=== PATIENT | male | born 1950 | race Caucasian/White ===

== ENCOUNTER → 2017-10-31 | Day surgery (SDC) | payer OTHER ==
[~2017-10-31] VITALS: Ht 177.8 cm; Wt 105.0 kg
[2017-10-31] VITALS (10 sets, daily range): BP systolic 101–148; BP diastolic 39–78; PULSE 49–59; TEMP 36.9; O2SAT 90–99; Ht 177.8 cm; Wt 105.0 kg
[~2017-10-31] MED LIST: AMLO-114 PO; ASCA500 PO; ASPI1TAB2 PO; ATOR-26 PO; CANNULA ONE; CO-Q10 PO; COLC0.6T54 PO; CYAN100048; CYAN10005 PO; CYCL10TA6 PO; LISI-792 PO; LRT5 PO; MISCCAP52 PO; MULT-506 PO; NAPR-1169 PO; OMEG10007 PO; OSTEO BIOFLEX PO; PANT40TA PO; SAW1000C PO; TAMS0.4C38 PO; TRAM-10 PO; VENL75CA73 PO; [UNRECOGNIZED DRUG - OTHER] PO
--- NOTE | 2017-10-31 07:32 | History & Physical Bridge Note ---
H&P Re-Evaluation Bridge Note: I have examined the patient, reviewed the History & Physical and in the interval since the performance of the History & Physical I have noted the following changes of clinical significance: No changes noted
--- NOTE | 2017-10-31 08:23 | Cardiology Procedure Brief Nt ---
Preliminary Cardiology Note Procedure Date Oct 31, 2017. Pre-Procedure Diagnosis Prosthetic aortic valve stenosis Post-Procedure Diagnosis Normal bioprosthetic aortic valve leaflet excursion Procedure(s) Performed Transesophageal echocardiogram Ring Attacher Cderic Christopher DO Internal Controls Consultant(s) MARY Zhang Estimated Blood Loss none Preliminary Findings After informed consent was obtained and timeout was performed with the patient was sedated with the assistance of Dr. Navarro of anesthesia receiving a total of 300 mg of IV propofol in divided doses. The bioprosthetic aortic valve was visualized by transesophageal echocardiogram , 2D images with normal leaflet excursion and no significant stenosis. No significant prosthetic regurgitation was noted. Sufficient Doppler velocities could not be obtained due to technical limitations from the transgastric imaging position. Recommendations Continue current medications. Follow-up as an outpatient as planned. Specimens None Anesthesia Propofol 300 mg. Complication(s) None Disposition Recover in the post cardiac catheterization recovery area, then discharge home
--- NOTE | 2017-10-31 08:33 | Discharge Instructions ---
Discharge Instructions Procedure Procedure Date: Oct 31, 2017. Reason for Visit: Assess for bioprosthetic aortic valve stenosis . Transesophageal echocardiogram performed today, 10/31/17, excluded prosthetic valve stenosis. Discharge Discharge Date: Oct 31, 2017. Discharge Diagnosis: Normal prosthetic valve function. Last Recorded Wt (Kilograms): 105 Anesthesia Post Anesthesia Instructions: If you have had General Anesthesia or IV Sedation: * Do not drive today. * Resume driving when surgeon permits. * Do not make important decisions or sign legal documents today. * Call surgeon for: 1. Temperature elevations greater than 101 degrees F. 2. Uncontrollable pain. 3. Excessive bleeding. 4. Persistent nausea and vomiting. 5. Medication intolerance (nausea, vomiting or rash). * For nausea and vomiting use only clear liquids such as: tea, soda, bouillon until nausea subsides, then gradually increase diet as tolerated. * If you have any concerns or questions, call your surgeon's office. If physician is unavailable and it is an emergency, call 911 or go to the nearest emergency room. Instructions Activity Recommendations: limitations as noted below, resume regular activity Recommended Home Diet: resume previous diet Allergies: Coded Allergies: Doxazosin (Unverified Allergy, Unknown, unknown, 10/31/17) Methylprednisolone (Unverified Allergy, Unknown, unknown, 10/31/17) Omeprazole (Verified Allergy, Unknown, 09/25/09) Provider Instructions ACTIVITY RECOMMENDATIONS: Resume activities as tolerated with no limitations unless specified. _x_ No lifting over __10 pounds for 24 hours. _x_ Do not engage in vigorous exercise, sexual activity, or sports for 24 hours. _x_ Do not drive or operate any motorized equipment for 24 hours. _x_ You may return to work/school tomorrow. _x_ Nothing to eat or drink until gag reflex returns. _x_ No HOT or WARM liquids for __ hours. _x_ Avoid "scratchy" foods such as potato chips or pretzels for 24 hours following procedure. SPECIAL CARE: If you experience coughing up or vomiting of blood, contact Follow Up Follow-up with: Follow up with Dr Candi De Anda Recommendations: Call your doctor if: * Temperature above 101 degrees * Pain not relieved by pain medicine ordered * There is increased drainage or redness from any incision * You have any unanswered questions or concerns. Your Doctors Instructions noted above were prepared by provider Cedric Christopher. Patient Signature Section: Patient Instructions Signature Page Jeff Woodruff Patient (or Guardian) Signature/Date: I have read and understand the instructions given to me by my caregivers. Caregiver/RN/Doctor Signature/Date: The above-named patient and/or guardian has received patient instructions on this date. + Original Patient Signature Page (only) stays with chart. Please make copy for patient.
--- NOTE | 2017-10-31 08:58 | Anesthesiology Progress Note ---
Anesthesia Post Op Note Date & Time Oct 31, 2017 at 08:58 Vital Signs Pain Intensity: 0 Vital Signs Past 12 Hours Date Time Temp Pulse Resp B/P (MAP) Pulse Ox O2 Delivery O2 Flow Rate FiO2 10/31/17 08:45 63 18 112/66 (81) 97 Room Air 10/31/17 08:30 54 18 118/65 (82) 97 Room Air 10/31/17 08:20 55 18 112/60 (77) 96 Room Air 10/31/17 08:10 50 18 106/49 95 Nasal Cannula 6 10/31/17 08:07 50 18 103/42 95 Nasal Cannula 6 10/31/17 08:05 50 18 105/53 95 Nasal Cannula 6 10/31/17 08:00 50 18 102/39 95 Nasal Cannula 6 10/31/17 07:55 50 18 101/45 95 Nasal Cannula 6 10/31/17 07:50 51 18 125/54 95 Nasal Cannula 6 10/31/17 07:45 55 18 126/52 90 Nasal Cannula 6 10/31/17 07:40 52 18 127/75 99 Nasal Cannula 4 10/31/17 07:00 36.9 49 18 148/78 (101) 93 Room Air Notes Mental Status: alert / awake / arousable, participated in evaluation Pt Amnestic to Procedure: Yes Nausea / Vomiting: adequately controlled Pain: adequately controlled Airway Patency, RR, SpO2: stable & adequate BP & HR: stable & adequate Hydration State: stable & adequate Anesthetic Complications: no major complications apparent
--- NOTE | 2017-10-31 21:12 | TEE ---
*NOTICE TO RECEIVING [employer] AGENCY This information is strictly Confidential and protected under [place] law. [place] law prohibits you from making any further disclosure of this information unless further disclosure is expressly permitted by the written consent of the person to whom it pertains or is authorized by law. A general authorization for the release of medical or other information is not sufficient for this purpose. Hospital accepts no responsibility if the information is made available to any other person, INCLUDING THE PATIENT. Interpretation Summary * Name: NEVA HOLLINGSWORTH Study Date: 10/31/2017 06:32 AM BP: 118/65 mmHg * Patient Location: [facility] HR: 52 * : 1950 (M/d/yyyy) Gender: Male Height: 70 in * Age: 67 yrs Ethnicity: [place] Weight: 230 lb * Ordering Physician: Cedric Christopher DO [facility] * Performed By: Michelle Atkins RDCS * * Reason For Study: Mild Prosthetic Obstruction Aortic Valve * BSA: 2.2 m2 * -- Conclusions -- * The study was technically adequate for the referring indication. * There is a bioprosthetic aortic valve. * The aortic valve prosthetic leaflets are visualized in the short axis view with normal excursion noted without evidence of prosthetic obstruction. * There is no significant intra or periprosthesis aortic valve regurgitation. * The proximal left ventricular outflow tract is somewhat small in diameter, 1.3 cm, and this may explain the flow acceleration causing elevated Doppler measurements on the transthoracic echocardiogram. Procedure Details * The transesophageal portion of this study was personally supervised by the undersigned interpreting physician. * AMBER Probe #2 utilized for procedure. * The study was performed in Cardiac Catheterization Lab. * Time out was conducted by the physician, nurse, and robotic weld technician with positive identification of patient and procedure. * Informed consent for Transesophageal Echocardiogram was obtained prior to the procedure. * An intravenous line was placed. A topical anesthetic agent was used for oropharangeal anesthesia. A bite block was inserted. * Sedation performed by the anesthesia department. * Medication: 300 ml propofol. Start time: 7:40 am End time: 8:07 am * The patient's vital signs, including blood pressure, heart rate, pulse oximetry and cardiac rhythm were monitored throughout the procedure . * The posterior oropharynx was anesthetized using a topical anesthetic spray. A bite guard was inserted. * A multifrequency, multiplane transesopheageal echocardiographic endoscope was inserted and manipulated in the standard fashion to achieve multiplane views. * The transesophageal probe was passed without difficulty. * The usual views were obtained; basal, mid-esophageal, transgastric and aortic views. * The patient tolerated the procedure well without evidence of orophangeal or esophageal trauma. * A 2D transesophageal echocardiogram with spectral and color flow Doppler was performed. * Contrast injection with agitated saline was performed. * A 2D transesophageal echocardiogram with Doppler and color flow Doppler was performed. Left Ventricle * The left ventricle is normal in size. * There is mild concentric left ventricular hypertrophy. * Left ventricular systolic function is normal. * Ejection Fraction = 55-60%. * The left ventricular wall motion is normal. Right Ventricle * The right ventricle is normal in size and function. Atria * The left atrial size is normal. * No thrombus is detected in the left atrial appendage. * No left atrial mass or thrombus visualized. * Right atrial size is normal. * The interatrial septum is intact with no evidence for an atrial septal defect. Mitral Valve * The mitral valve anatomy is normal. * There is no mitral valve prolapse present. * There is no mitral valve stenosis. * There is mild mitral regurgitation. Tricuspid Valve * The tricuspid valve is normal. * There is no tricuspid stenosis. * Significant tricuspid regurgitation is absent. * Doppler findings do not suggest pulmonary hypertension. Aortic Valve * There is a bioprosthetic aortic valve. * The aortic valve prosthetic leaflets are visualized in the short axis view with normal excursion noted without evidence of prosthetic obstruction. There is no significant intra or periprosthesis aortic valve regurgitation. The proximal left ventricular outflow tract is somewhat small in diameter, 1.3 cm, and this may explain the flow acceleration causing elevated Doppler measurements on the transthoracic echocardiogram. Pulmonic Valve * The pulmonic valve is not well seen, but is grossly normal. * There is no significant pulmonary regurgitation. Great Vessels * The aortic root is normal size. * Very mild non-mobile atheromatous disease is noted the visualized portions of the descending thoracic aorta. Pericardium * There is no pericardial effusion.
== END | disposition home or self-care (01) ==
LOC: C.CATH 06:50
PROVIDERS: ATTEND Specialist
DX: I35.0 Nonrheumatic aortic (valve) stenosis (principal); G47.33 Obstructive sleep apnea (adult) (pediatric); I25.10 Atherosclerotic heart disease of native coronary artery without angina pectoris; M19.90 Unspecified osteoarthritis, unspecified site; M10.9 Gout, unspecified; K21.9 Gastro-esophageal reflux disease without esophagitis; I10 Essential (primary) hypertension; E78.5 Hyperlipidemia, unspecified; Z79.899 Other long term (current) drug therapy; Z95.2 Presence of prosthetic heart valve; Z95.1 Presence of aortocoronary bypass graft